=== PATIENT | male | born 1970 | race African-American/Black ===

== ENCOUNTER 2017-08-16 10:07 | Emergency (ER) | payer OTHER ==
[~2017-08-16] VITALS: Ht 172.7 cm; Wt 98.7 kg
[~2017-08-16 10:07] MED LIST: ALBUTEROL SULF8.5 GM IH; AMOXICILLIN500 M1 PO; AZITHROMYCIN250 MG1 PO; DAY TIME COLD-1 EAC1 PO; HYDROCODON-ACE1 EAC7 PO; LEVAQUIN500 MG PO; MOTRIN600 MG PO; MUCINEX PO; NO HOME MEDS; NOHOMEMEDS; PROAIR HFA8.5 GM IH; PROAIR RESPICL90 MCG IH; ROBITUSSIN AC,T10 ML PO; VALIUM5 MG PO; VANCOMYCIN HCL1 GM IV; VENTOLIN HFA18 GM IH; VITAMINS; ZITHROMAX Z-PA250 MG PO; ZOLOFT100 MG PO; no home
[2017-08-16 11:03] LABS: HEMATOCRIT 46.9 % (38.0-50.0); HEMOGLOBIN 16.4 G/DL (12.5-16.6); MCH 32.4 PG (29.0-34.0); MCV 92.7 FL (86-99); PLATELET COUNT 194 K/uL (156-360); RBC DIS.WIDTH-CV 11.9 % (11.8-14.6); RBC DIS.WIDTH-SD 40.5 % (39-53); RED BLOOD COUNT 5.06 M/uL (4.00-5.50); WHITE BLOOD COUNT 4.8 K/uL (4.1-10.2)
[2017-08-16 11:13] LABS: CHLORIDE 105 mEq/L (99-109); POTASSIUM 4.6 mEq/L (3.7-5.4); SODIUM 140 mEq/L (136-147)
[2017-08-16 11:14] LABS: GLUCOSE 84 mg/dL (70-99)
[2017-08-16 11:18] LABS: CREATININE 1.2 mg/dL (0.6-1.3); GFR ESTIMATE (CALCULATED) > 59 mL/min/ (58.99-99999)
[2017-08-16 11:19] LABS: UREA NITROGEN (BUN) 18 mg/dL (9-23)
[2017-08-16] MEDS ORDERED: TESSALON PERLE100 MG PO (12:12)
[2017-08-16 12:18] VITALS: BP 137/80
== END 2017-08-16 12:30 | disposition home or self-care (01) ==
LOC: EME 10:07
DX: J44.0 Chronic obstructive pulmonary disease with (acute) lower respiratory infection (principal); J20.9 Acute bronchitis, unspecified; F32.9 Major depressive disorder, single episode, unspecified; Z87.891 Personal history of nicotine dependence
CPT/HCPCS: 71046; 80048; 85027; 94640; J1100

== ENCOUNTER 2017-11-27 09:29 | Emergency (ER) | payer OTHER ==
[~2017-11-27] VITALS: Ht 172.7 cm; Wt 102.7 kg
[~2017-11-27 09:29] MED LIST changes: +TESSALON PERLE100 MG PO
[2017-11-27] MEDS ORDERED: ZITHROMAX Z-PA250 MG PO (10:17)
[2017-11-27] MEDS ORDERED: DELTASONE20 M1 PO (10:17)
[2017-11-27] MEDS ORDERED: ROBITUSSIN AC,T10 ML PO (10:17)
[2017-11-27 10:38] VITALS: BP 137/82
== END 2017-11-27 10:39 | disposition home or self-care (01) ==
LOC: EME 09:29
DX: J20.9 Acute bronchitis, unspecified (principal); J44.9 Chronic obstructive pulmonary disease, unspecified
CPT/HCPCS: 99281; 99284